=== PATIENT | male | born 2005 | race Hispanic/Latino ===

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

== ENCOUNTER 2024-01-04 17:39 | Emergency (ER) | payer MEDICAID, OTHER ==
[~2024-01-04] VITALS: Ht 180.3 cm; Wt 75.3 kg
[2024-01-04 18:12] VITALS: BP 124/68; PULSE 87; RESP 17
[2024-01-04] MEDS ORDERED: CILOOO OD (22:55)
[2024-01-05] MEDS ORDERED: CIPR2.5D18 OD (10:06)
== END 2024-01-04 23:35 | disposition home or self-care (01) ==
LOC: EDH 17:39
DX: H10.89 Other conjunctivitis (principal); H57.11 Ocular pain, right eye; J45.909 Unspecified asthma, uncomplicated